=== PATIENT | female | born 1975 | race Caucasian/White ===

== ENCOUNTER → 2017-02-11 | Outpatient (CLI) | payer MEDICAID | END | disposition short-term general hospital (02) | LOC: CLPAIN 11:10 | DX: M47.27 Other spondylosis with radiculopathy, lumbosacral region (principal); M51.9 Unspecified thoracic, thoracolumbar and lumbosacral intervertebral disc disorder; M46.1 Sacroiliitis, not elsewhere classified; M54.12 Radiculopathy, cervical region ==

== ENCOUNTER → 2017-04-01 | Outpatient (CLI) | payer MEDICAID | END | disposition short-term general hospital (02) | LOC: CLPAIN 07:55 | DX: M16.12 Unilateral primary osteoarthritis, left hip (principal); M46.1 Sacroiliitis, not elsewhere classified; M47.27 Other spondylosis with radiculopathy, lumbosacral region ==

== ENCOUNTER → 2017-05-13 | Outpatient (CLI) | payer MEDICAID | END | disposition short-term general hospital (02) | LOC: CLPAIN 04-15 02:05 | DX: M47.27 Other spondylosis with radiculopathy, lumbosacral region (principal) ==